=== PATIENT | male | born 1950 | race Caucasian/White ===

== ENCOUNTER → 2021-05-26 | Day surgery (SDC) | payer OTHER ==
[~2021-05-26] VITALS: Ht 182.9 cm; Wt 99.3 kg
[~2021-05-26] MED LIST: FLOMAX 0.4 MG0.4 MG PO; GLUCOTROL10 MG PO; PROTONIX 40MG T40 MG PO; UROCIT-K10 MEQ PO
[2021-05-26 08:54] LABS: HCT 41.8 % (42.0-52.0); HGB 15.1 g/dl (13.2-18.0); MCH 30.8 pg (25.0-31.0); MCHC 36.1 g/dL (32.0-36.0); MCV 85.1 fL (78.0-100.0); MPV 9.7 fL (6.0-9.5); RBC 4.91 M/uL (4.70-6.00); RDW 12.1 % (11.5-14.0); WBC 5.1 K/uL (4.0-10.5)
[2021-05-26 09:35] LABS: ALBUMIN 3.6 g/dL (3.4-5.0); BILIRUBIN - TOTAL 0.4 mg/dL (0.2-1.0); BUN/CREAT RATIO (CALC) 26.8 RATIO; CREATININE 0.71 mg/dL (0.67-1.17); POTASSIUM 3.7 mmol/L (3.5-5.1); TOTAL PROTEIN 6.6 g/dL (6.4-8.2)
== END | disposition home or self-care (01) ==
LOC: FAS 07:44
PROVIDERS: Surgery
DX: K22.2 Esophageal obstruction (principal); K21.00 Gastro-esophageal reflux disease with esophagitis, without bleeding; K29.50 Unspecified chronic gastritis without bleeding; E11.9 Type 2 diabetes mellitus without complications; Z79.899 Other long term (current) drug therapy; Z90.49 Acquired absence of other specified parts of digestive tract
CPT/HCPCS: 36415; 80053; C1726; J0690; J2704; J7120